=== PATIENT | male | born 1990 | race Two or more races ===

== ENCOUNTER 2016-12-06 15:47 | Emergency (ER) | payer SELFPAY ==
[~2016-12-06] VITALS: Ht 175.3 cm; Wt 64.9 kg
[~2016-12-06 15:47] MED LIST: INSU100C4 SQ; INSU100V13 SQ; PANT40TA5 PO; POLY17PO3 PO; SUCR1TAB35 PO
[2016-12-06] MEDS ORDERED: IV NORMAL SALINE 1000ML BAG 1,000 ML IV ONE ×2 (16:00→18:00)
[2016-12-06] MEDS ORDERED: LIDO:MAALOX:DONNATAL 1:1:1 15 ML SINGLE DOSE SWSW ONE (16:15)
[2016-12-06 16:34] LABS: BARBITURATES NEG (NEG); BENZODIAZEPINES NEG (NEG); CANNABINOIDS POS (NEG); COCAINE NEG (NEG); METHADONE NEG (NEG); OPIATES NEG (NEG); PHENCYCLIDINE NEG (NEG)
[2016-12-06 16:46] LABS: BASO # 0.1 x10^3/uL (0.0-0.2); BASO % 1 % (0-3); EOS % 0 % (0-3); LYMPH # 1.9 x10^3/uL (1.0-4.8); LYMPH % 18 % (24-48); MEAN CORPUSCULAR HEMOGLOBIN 31 pg (25-35); MEAN CORPUSCULAR HGB CONC 33 g/dL (31-37); MEAN CORPUSCULAR VOLUME 93 fL (79-100); MONO % 4 % (0-9); NEUT % 77 % (31-73); PLATELET COUNT 418 x10^3/uL (140-400); RED BLOOD COUNT 3.85 x10^6/uL (4.30-5.70); RED CELL DISTRIBUTION WIDTH 13.3 % (11.5-14.5); WHITE BLOOD COUNT 10.4 x10^3/uL (4.0-11.0)
--- NOTE | 2016-12-06 17:13 | EKG ---
[facility] [address] [place] [address] Test Date: 2016-12-06 Test Time: 16:28:45 Pat Name: KAYLAN LEE Department: Room: Gender: M Telephone Claims Representative: : 1990 Requested By: Haydee GILL Order Number: [id number] Reading MD: Measurements Intervals [place] Rate: 96 P: -104 GA: 122 QRS: 47 QRSD: 102 T: 64 QT: 352 QTc: 446 Interpretive Statements SUPRAVENTRICULAR RHYTHM QRS(T) CONTOUR ABNORMALITY CANNOT RULE OUT ANTEROSEPTAL MYOCARDIAL DAMAGE ST & T ABNORMALITY, CONSIDER RECENT INFERIOR MYOCARDIAL OR PERICARDIAL DAMAGE RI6.01 Unconfirmed report No previous ECG available for comparison
[2016-12-06] MEDS ORDERED: MORPHINE SULFATE 4 MG/ML DISP.SYRIN. IV ONE (17:15)
[2016-12-06] MEDS ORDERED: INSULIN REGULAR 100 UNIT/ML 10ML VIAL. IV ONE (17:15)
[2016-12-06 17:17] LABS: ALBUMIN 3.2 g/dL (3.4-5.0); CALCIUM 8.8 mg/dL (8.5-10.1); CREATININE 1.8 mg/dL (0.7-1.3); GFR 45.5; POTASSIUM 4.4 mmol/L (3.5-5.1); TOTAL BILIRUBIN 0.4 mg/dL (0.2-1.0); TOTAL PROTEIN 6.5 g/dL (6.4-8.2)
[2016-12-06] MEDS ORDERED: SUCRALFATE 1 GM/10 ML ORAL.SUSP. PEG ONE (17:30)
--- NOTE | 2016-12-06 17:39 | PHYS DOC ---
Past Medical History Past Medical History: Asthma, Diabetes-Type I, GERD Past Surgical History: No Surgical History Alcohol Use: None Drug Use: Marijuana Adult General Chief Complaint Chief Complaint: ABDOMINAL PAIN HPI HPI Patient is a 26 year old male who presents with complaints of high blood sugars as well as abdominal pain consistent with a history of reflux. Patient denies any fevers, chills rashes, diarrhea. No sick contacts. No trauma. Patient states he is compliant with his insulin but his blood sugar has been high for a couple days. He did himself gives himself insulin this morning. Patient denies any drug use other than marijuana, is only a social drinker, occasionally uses methamphetamines but the last time he used it was 2 weeks ago. Review of Systems Review of Systems Constitutional: no fevers, chills HENT: Denies nasal congestion or sore throat [] Respiratory: Denies cough or shortness of breath [] Cardiovascular: No chest pain GI: Yes to abdominal pain. No nausea, vomiting, bloody stools or diarrhea [] : Denies dysuria or hematuria [] Musculoskeletal: Denies back pain or joint pain [] Integument: Denies rash or skin lesions [] Neurologic: Denies headache, focal weakness or sensory changes [] Endocrine: Denies polyuria. Yes to polydipsia Current Medications Current Medications Current Medications Medications (Trade) Dose Ordered Sig/Cassandra Start Time Stop Time Status Last Admin Dose Admin Insulin Human Regular (NovoLIN R VIAL) 10 unit 1X ONCE 12/06/16 17:15 12/06/16 17:16 DC 12/06/16 17:18 10 UNIT Morphine Sulfate 4 mg 1X ONCE 12/06/16 17:15 12/06/16 17:16 DC 12/06/16 17:19 4 MG Multi-Ingredient Mouthwash/Gargle (Gi Cocktail Single Dose) 15 ml 1X ONCE 12/06/16 16:15 12/06/16 16:16 DC 12/06/16 16:47 15 ML Sodium Chloride 1,000 ml @ 1,000 mls/hr 1X ONCE 12/06/16 18:00 12/06/16 18:59 DC 12/06/16 18:06 1,000 MLS/HR Sucralfate (Carafate) 1 gm 1X ONCE 12/06/16 17:45 12/06/16 17:46 DC 12/06/16 17:40 1 GM Allergies Allergies Allergies Coded Allergies Type Severity Reaction Last Updated Verified Penicillins Allergy Unknown 12/06/16 Yes Physical Exam Physical Exam Constitutional: Well developed, well nourished, mild distress, non-toxic appearance. [] HENT: Normocephalic, atraumatic, bilateral external ears normal, oropharynx dry no oral exudates, Eyes: EOMI, conjunctiva normal, no discharge. [] Neck: Normal range of motion, no tenderness, supple, no stridor. No meningeal signs, no LAD Cardiovascular:Heart rate regular rhythm, no murmur [] Lungs & Thorax: Bilateral breath sounds clear to auscultation, no tachypnea Abdomen: Bowel sounds normal, soft, mild tenderness right upper quadrant, no masses, no pulsatile masses. [] Skin: Warm, dry, no erythema, no rash. Scattered lesions consistent with picking with no signs of cellulitis or abscess Back: No tenderness, no CVA tenderness. [] Extremities: No tenderness, no cyanosis, no clubbing, ROM intact, no edema. [] Neurologic: Alert and oriented X 3, normal motor function, no focal deficits noted. [] Psychologic: Affect normal, judgement normal, mood normal. [] Current Patient Data Vital Signs Vital Signs Date Time Temp Pulse Resp B/P (MAP) Pulse Ox O2 Delivery O2 Flow Rate FiO2 12/06/16 18:47 92 114/57 (76) 98 Room Air 12/06/16 15:57 98.4 22 98.4 Lab Values Laboratory Tests Test 12/06/16 16:06 12/06/16 16:18 12/06/16 16:37 Glucose (Fingerstick) 520 mg/dL (70-99) *H Urine Opiates Screen Neg (NEG) Urine Methadone Screen Neg (NEG) Urine Barbiturates Neg (NEG) Urine Phencyclidine Screen Neg (NEG) Urine Amphetamine/Methamphetamine Neg (NEG) Urine Benzodiazepines Screen Neg (NEG) Urine Cocaine Screen Neg (NEG) Urine Cannabinoids Screen Pos (NEG) Urine Ethyl Alcohol Neg (NEG) White Blood Count 10.4 x10^3/uL (4.0-11.0) Red Blood Count 3.85 x10^6/uL (4.30-5.70) L Hemoglobin 12.0 g/dL (13.0-17.5) L Hematocrit 36.0 % (39.0-53.0) L Mean Corpuscular Volume 93 fL (79-100) Mean Corpuscular Hemoglobin 31 pg (25-35) Mean Corpuscular Hemoglobin Concent 33 g/dL (31-37) Red Cell Distribution Width 13.3 % (11.5-14.5) Platelet Count 418 x10^3/uL (140-400) H Neutrophils (%) (Auto) 77 % (31-73) H Lymphocytes (%) (Auto) 18 % (24-48) L Monocytes (%) (Auto) 4 % (0-9) Eosinophils (%) (Auto) 0 % (0-3) Basophils (%) (Auto) 1 % (0-3) Neutrophils # (Auto) 8.0 x10^3uL (1.8-7.7) H Lymphocytes # (Auto) 1.9 x10^3/uL (1.0-4.8) Monocytes # (Auto) 0.5 x10^3/uL (0.0-1.1) Eosinophils # (Auto) 0.0 x10^3/uL (0.0-0.7) Basophils # (Auto) 0.1 x10^3/uL (0.0-0.2) Sodium Level 130 mmol/L (136-145) L Potassium Level 4.4 mmol/L (3.5-5.1) Chloride Level 88 mmol/L (98-107) L Carbon Dioxide Level 29 mmol/L (21-32) Anion Gap 13 (6-14) Blood Urea Nitrogen 40 mg/dL (8-26) H Creatinine 1.8 mg/dL (0.7-1.3) H Estimated GFR (Cockcroft-Gault) 45.5 BUN/Creatinine Ratio 22 (6-20) H Glucose Level 596 mg/dL (70-99) *H Calcium Level 8.8 mg/dL (8.5-10.1) Total Bilirubin 0.4 mg/dL (0.2-1.0) Aspartate Amino Transferase (AST) 15 U/L (15-37) Alanine Aminotransferase (ALT) 11 U/L (16-63) L Alkaline Phosphatase 152 U/L (46-116) H Total Protein 6.5 g/dL (6.4-8.2) Albumin 3.2 g/dL (3.4-5.0) L Albumin/Globulin Ratio 1.0 (1.0-1.7) Lipase 125 U/L (73-393) Laboratory Tests 12/06/16 16:37 Laboratory Tests 12/06/16 16:37 EKG EKG 1635 96, sinus rhythm, no STEMI [] Radiology/Procedures Radiology/Procedures [] Course & Med Decision Making Course & Med Decision Making Pertinent Labs and Imaging studies reviewed. (See chart for details), this has all been discussed with patient. 190 patient in no distress, patient feels improved. Glucose 330 [] Dragon Disclaimer Dragon Disclaimer This electronic medical record was generated, in whole or in part, using a voice recognition dictation system. Departure Departure Impression: Primary Impression: Abdominal pain Additional Impressions: Hyperglycemia Dehydration Marijuana abuse Disposition: HOME, SELF-CARE Condition: IMPROVED Referrals: NO PCP (PCP) you told us you have a pcp, please follow up with him/her to discuss possible need for adjustment of your insulin as well as recheck of your abdominal pain. Please follow up tomorrow. Please do not some marijuana any more. Patient Instructions: Abdominal Pain (Nonspecific), Dehydration, Adult, Hypercalcemia, Marijuana Abuse and Chemical Dependency Scripts Sucralfate (CARAFATE) 1 Gm/10 Ml Oral.susp 10 ML PO BID, #120 ML 1 Refill Prov: Haydee GILL MD 12/06/16 Hyoscyamine Sulfate (LEVSIN) 0.125 Mg Tablet 1 TAB PO TID, #15 TAB 1 Refill Prov: Haydee GILL MD 12/06/16 Ondansetron Hcl (ZOFRAN) 4 Mg Tablet 1 TAB PO Q6HRS, #12 TAB Prov: Haydee GILL MD 12/06/16 Problem Qualifiers Haydee GILL MD Dec 06, 2016 17:39
[2016-12-06] MEDS ORDERED: SUCRALFATE 1 GM TABLET. PO ONE (17:45)
[2016-12-06 18:47] VITALS: BP 114/57
--- NOTE | 2016-12-06 18:57 | RAD ---
EXAM: Abdomen sonogram limited. HISTORY: Pain. TECHNIQUE: Sonographic imaging of the abdomen was performed. COMPARISON: CT dated 11/24/2016. FINDINGS: The liver is upper normal in size. There is hepatic steatosis. No focal hepatic lesion is seen. The gallbladder is unremarkable. The common bile duct is normal in caliber. The inferior vena cava is patent. The aorta is normal in caliber. The pancreas is unremarkable. The right kidney measures 13.4 cm [id number]. There is a dilated right renal collecting system which nearly completely resolves with post void imaging. IMPRESSION: 1. Prominent right renal plaquing system which nearly completely resolves with post void imaging. This is likely due to the hydration status of the patient rather than hydronephrosis. There may be a superimposed component of reflux. 2. Hepatic steatosis and upper normal liver size. Electronically signed by: Dinorah Pool MD (12/06/2016 6:54 PM) [facility]
[2016-12-06] MEDS ORDERED: ONDA4TAB7 PO (19:17)
[2016-12-06] MEDS ORDERED: HYOS0.1264 PO (19:17)
[2016-12-06] MEDS ORDERED: SUCR1ORA5 PO (19:17)
== END 2016-12-06 19:33 | disposition home or self-care (01) ==
LOC: ER 15:47
DX: R10.11 Right upper quadrant pain (principal); E10.65 Type 1 diabetes mellitus with hyperglycemia; E86.0 Dehydration; F12.10 Cannabis abuse, uncomplicated; J45.909 Unspecified asthma, uncomplicated; K21.9 Gastro-esophageal reflux disease without esophagitis; F15.10 Other stimulant abuse, uncomplicated; Z79.4 Long term (current) use of insulin; Z88.0 Allergy status to penicillin
CPT/HCPCS: 36415; 76705; 80053; 80307; 82962; 83690; 85025; 93005; 96361; 96374; 96375; 99285; J1815; J2270; J7030; G0479

== ENCOUNTER 2017-01-13 02:01 | Inpatient (IN) | payer SELFPAY ==
[~2017-01-13] VITALS: Ht 172.7 cm; Wt 64.9 kg
[~2017-01-13 02:01] MED LIST changes: +HYOS0.1264 PO; +ONDA4TAB7 PO; +SUCR1ORA5 PO
[2017-01-13 02:43] LABS: BASO % 1 % (0-3); EOS % 0 % (0-3); HEMATOCRIT 43.5 % (39.0-53.0); HEMOGLOBIN 14.9 g/dL (13.0-17.5); LYMPH # 1.6 x10^3/uL (1.0-4.8); LYMPH % 25 % (24-48); MEAN CORPUSCULAR HEMOGLOBIN 32 pg (25-35); MEAN CORPUSCULAR HGB CONC 34 g/dL (31-37); MEAN CORPUSCULAR VOLUME 94 fL (79-100); MONO % 6 % (0-9); NEUT % 68 % (31-73); PLATELET COUNT 346 x10^3/uL (140-400); RED BLOOD COUNT 4.63 x10^6/uL (4.30-5.70); RED CELL DISTRIBUTION WIDTH 15.1 % (11.5-14.5); WHITE BLOOD COUNT 6.3 x10^3/uL (4.0-11.0)
[2017-01-13] MEDS ORDERED: IV NORMAL SALINE 1000ML BAG 1,000 ML IV ONE ×2 (02:45→03:45)
[2017-01-13] MEDS ORDERED: NALOXONE 0.4 MG/ML VIAL. IV ONE (02:45)
[2017-01-13] MEDS ORDERED: CONTRAST GIVEN MC PRN (02:45)
[2017-01-13] MEDS ORDERED: IOHEXOL 300 MG/ML 75 ML VIAL IV ONE (02:45)
[2017-01-13 02:55] LABS: PROTHROMBIN TIME PATIENT 12.5 SEC (11.7-14.0)
[2017-01-13 02:55] LABS: BILIRUBIN,URINE NEGATIVE (NEG); GLUCOSE,URINE >=1000 mg/dL (NEG); NITRITE,URINE NEGATIVE (NEG); PH,URINE 5.5; PROTEIN,URINE NEGATIVE (NEG-TRACE); UROBILINOGEN,URINE 0.2 mg/dL (0.2 mg/dL)
[2017-01-13 02:58] LABS: CALCIUM 10.1 mg/dL (8.5-10.1); CREATININE 1.6 mg/dL (0.7-1.3); GFR 52.1; POTASSIUM 4.2 mmol/L (3.5-5.1)
[2017-01-13 02:59] LABS: BACTERIA,URINE 0 /HPF (0-FEW); RBC,URINE 0 /HPF (0-2); SQUAMOUS EPITHELIAL CELL,UR OCC /LPF; WBC,URINE OCC /HPF (0-4)
[2017-01-13 03:01] LABS: ETHANOL < 10 mg/dL (0-10)
[2017-01-13 03:02] LABS: BARBITURATES NEG (NEG); BENZODIAZEPINES NEG (NEG); CANNABINOIDS POS (NEG); COCAINE NEG (NEG); METHADONE NEG (NEG); OPIATES NEG (NEG); PHENCYCLIDINE NEG (NEG)
[2017-01-13 03:02] LABS: ALBUMIN 4.1 g/dL (3.4-5.0); MAGNESIUM 2.4 mg/dL (1.8-2.4); TOTAL BILIRUBIN 0.7 mg/dL (0.2-1.0); TOTAL PROTEIN 8.3 g/dL (6.4-8.2)
--- NOTE | 2017-01-13 03:12 | RAD ---
CT head without contrast: Reason for examination: Altered mental status tonight. Axial images were obtained through the brain. No contrast was administered. Exposure: One or more of the following individualized dose reduction techniques were utilized for this examination: 1. Automated exposure control 2. Adjustment of the mA and/or kV according to patient size 3. Use of iterative reconstruction technique. Ventricular systems are symmetric and not abnormally dilated. No midline shift is seen. There is no evidence of intracranial hemorrhage, infarct, mass or contusion. No abnormalities are seen at the orbits. The paranasal sinuses and mastoid air cells are clear. No acute abnormality seen in the skull. IMPRESSION: No acute intracranial abnormality evident. Electronically signed by: April Arias MD (01/13/2017 3:09 AM) [facility]
[2017-01-13] MEDS ORDERED: ONDANSETRON PF 4 MG/2 ML VIAL. IV PRN (03:45)
[2017-01-13] MEDS ORDERED: ACETAMINOPHEN 325 MG TABLET. PO PRN (03:45)
--- NOTE | 2017-01-13 04:18 | PHYS DOC ---
Past Medical History Past Medical History: Asthma, Diabetes-Type I, GERD Past Surgical History: No Surgical History Alcohol Use: Occasionally Drug Use: Marijuana, Methamphetamine Adult General Chief Complaint Chief Complaint: ALTERED MENTAL STATUS HPI HPI Patient is a 26 year old male who presents with altered mental status. The patient is unable to give history due to his clinical condition. A friend states that she picked him up from another house, & was concerned that his blood glucose was low. She states he complained of abdominal pain, appeared sweaty, & was confused. He has history of type 1 diabetes. The patient denies drug or alcohol use. Was recently hospitalized at [facility] for unknown condition. Review of Systems Review of Systems unable to obtain due to clinical condition. Current Medications Current Medications Current Medications Medications (Trade) Dose Ordered Sig/Cassandra Start Time Stop Time Status Last Admin Dose Admin Acetaminophen (Tylenol) 650 mg PRN Q4HRS PRN 01/13/17 03:45 01/14/17 03:44 Info (Do NOT chart on this entry -- for MONITORING) 1 each PRN DAILY PRN 01/13/17 02:45 01/15/17 02:44 Iohexol (Omnipaque 300 Mg/ml) 75 ml 1X ONCE 01/13/17 02:45 01/13/17 02:46 DC 01/13/17 02:45 60 ML Naloxone HCl (Narcan) 0.4 mg 1X ONCE 01/13/17 02:45 01/13/17 02:46 DC Ondansetron HCl (Zofran) 4 mg PRN Q8HRS PRN 01/13/17 03:45 01/14/17 03:44 Sodium Chloride 1,000 ml @ 1,000 mls/hr 1X ONCE 01/13/17 03:45 01/13/17 04:44 01/13/17 03:56 1,000 MLS/HR Allergies Allergies Allergies Coded Allergies Type Severity Reaction Last Updated Verified Penicillins Allergy Unknown 12/06/16 Yes Physical Exam Physical Exam Constitutional: drowsy, poor hygiene, no acute distress, non-toxic appearance. HENT: Normocephalic, atraumatic, bilateral external ears normal, oropharynx moist, nose normal. Eyes: PERRLA, EOMI, conjunctiva normal, no discharge. Neck: supple, no stridor. Cardiovascular: tachycardic, regular, no murmurs, no edema. Lungs & Thorax: LCTAB, no wheezing, no respiratory distress. Abdomen: soft, nondistended, LLQ & L mid abdominal tenderness with voluntary guarding, no rebound tenderness, no masses or pulsatile masses. Skin: Warm, dry, no erythema, no rash. Back: No tenderness. Extremities: No tenderness, no edema. Neurologic: drowsy, arousable to painful stimulus, answers some questions, follows commands, GCS 11, CN2-12 grossly intact though poorly cooperative, symmetric strength/sensation to upper & lower extremities though globally weak, no focal deficits noted. Psychologic: unable to assess due to clinical condition. Current Patient Data Vital Signs Vital Signs Date Time Temp Pulse Resp B/P (MAP) Pulse Ox O2 Delivery O2 Flow Rate FiO2 01/13/17 02:34 97.8 104 20 98 97.8 01/13/17 02:04 118/73 (88) Room Air Lab Values Laboratory Tests Test 01/13/17 02:08 01/13/17 02:34 01/13/17 02:48 Glucose (Fingerstick) 207 mg/dL (70-99) H White Blood Count 6.3 x10^3/uL (4.0-11.0) Red Blood Count 4.63 x10^6/uL (4.30-5.70) Hemoglobin 14.9 g/dL (13.0-17.5) Hematocrit 43.5 % (39.0-53.0) Mean Corpuscular Volume 94 fL (79-100) Mean Corpuscular Hemoglobin 32 pg (25-35) Mean Corpuscular Hemoglobin Concent 34 g/dL (31-37) Red Cell Distribution Width 15.1 % (11.5-14.5) H Platelet Count 346 x10^3/uL (140-400) Neutrophils (%) (Auto) 68 % (31-73) Lymphocytes (%) (Auto) 25 % (24-48) Monocytes (%) (Auto) 6 % (0-9) Eosinophils (%) (Auto) 0 % (0-3) Basophils (%) (Auto) 1 % (0-3) Neutrophils # (Auto) 4.3 x10^3uL (1.8-7.7) Lymphocytes # (Auto) 1.6 x10^3/uL (1.0-4.8) Monocytes # (Auto) 0.4 x10^3/uL (0.0-1.1) Eosinophils # (Auto) 0.0 x10^3/uL (0.0-0.7) Basophils # (Auto) 0.0 x10^3/uL (0.0-0.2) Prothrombin Time 12.5 SEC (11.7-14.0) Prothrombin Time INR 1.0 (0.8-1.1) PTT 26 SEC (24-38) Sodium Level 136 mmol/L (136-145) Potassium Level 4.2 mmol/L (3.5-5.1) Chloride Level 90 mmol/L (98-107) L Carbon Dioxide Level 25 mmol/L (21-32) Anion Gap 21 (6-14) H Blood Urea Nitrogen 29 mg/dL (8-26) H Creatinine 1.6 mg/dL (0.7-1.3) H Estimated GFR (Cockcroft-Gault) 52.1 BUN/Creatinine Ratio 18 (6-20) Glucose Level 235 mg/dL (70-99) H Calcium Level 10.1 mg/dL (8.5-10.1) Magnesium Level 2.4 mg/dL (1.8-2.4) Total Bilirubin 0.7 mg/dL (0.2-1.0) Aspartate Amino Transferase (AST) 28 U/L (15-37) Alanine Aminotransferase (ALT) 14 U/L (16-63) L Alkaline Phosphatase 234 U/L (46-116) H Troponin I Quantitative < 0.017 ng/mL (0.000-0.055) KX-Uwn-P-Type Natriuretic Peptide 26 pg/mL (0-124) Total Protein 8.3 g/dL (6.4-8.2) H Albumin 4.1 g/dL (3.4-5.0) Albumin/Globulin Ratio 1.0 (1.0-1.7) Lipase 114 U/L (73-393) Salicylates Level 3.5 mg/dL (2.8-20.0) Salicylate Last Dose Date Salicylate Last Dose Time Acetaminophen Level < 2 mcg/ml (10-30) L Acetaminophen Last Dose Date Acetaminophen Last Dose Time Ethyl Alcohol Level < 10 mg/dL (0-10) Urine Collection Type Unknown Urine Color Yellow Urine Clarity Clear Urine pH 5.5 Urine Specific [place] >=1.030 Urine Protein Negative mg/dL (NEG-TRACE) Urine Glucose (UA) >=1000 mg/dL (NEG) Urine Ketones (Stick) >=80 mg/dL (NEG) Urine Blood Negative (NEG) Urine Nitrite Negative (NEG) Urine Bilirubin Negative (NEG) Urine Urobilinogen Dipstick 0.2 mg/dL (0.2 mg/dL) Urine Leukocyte Esterase Negative (NEG) Urine RBC 0 /HPF (0-2) Urine WBC Occ /HPF (0-4) Urine Squamous Epithelial Cells Occ /LPF Urine Bacteria 0 /HPF (0-FEW) Urine Opiates Screen Neg (NEG) Urine Methadone Screen Neg (NEG) Urine Barbiturates Neg (NEG) Urine Phencyclidine Screen Neg (NEG) Urine Amphetamine/Methamphetamine Pos (NEG) Urine Benzodiazepines Screen Neg (NEG) Urine Cocaine Screen Neg (NEG) Urine Cannabinoids Screen Pos (NEG) Urine Ethyl Alcohol Neg (NEG) Laboratory Tests 01/13/17 02:34 Laboratory Tests 01/13/17 02:34 EKG EKG interpreted by me: sinus tachycardia rate 103, no acute ST/T wave changes, normal intervals, no ectopy.[] Radiology/Procedures Radiology/Procedures CXR: interpreted by me: no cardiomegaly, no infiltrate, no pneumothorax, no acute process. PROCEDURE: CT HEAD WO CONTRAST CT head without contrast: Reason for examination: Altered mental status tonight. Axial images were obtained through the brain. No contrast was administered. Exposure: One or more of the following individualized dose reduction techniques were utilized for this examination: 1. Automated exposure control 2. Adjustment of the mA and/or kV according to patient size 3. Use of iterative reconstruction technique. Ventricular systems are symmetric and not abnormally dilated. No midline shift is seen. There is no evidence of intracranial hemorrhage, infarct, mass or contusion. No abnormalities are seen at the orbits. The paranasal sinuses and mastoid air cells are clear. No acute abnormality seen in the skull. IMPRESSION: No acute intracranial abnormality evident. Electronically signed by: April Martinez MD (01/13/2017 3:09 AM) [facility] DICTATED and SIGNED BY: APRIL MARTINEZ MD DATE: 01/13/17 0308 [] Course & Med Decision Making Course & Med Decision Making Pertinent Labs and Imaging studies reviewed. (See chart for details) The patient presents with altered mental status. blood glucose was in the 200s. Arousable with painful stimulus, oxygen saturation stable. Gave IV fluids. Obtained labs, EKG, CXR, head CT, CT abdomen/pelvis. Found to have high anion gap without acidosis, hyperglycemia, positive for amphetamines & cannabis. Recommended admission to the hospital for further evaluation & treatment as his GCS had not changed. Discussed with Dr. Voss who agrees to admit to inpatient status. The patient is admitted in stable condition. [] Dragon Disclaimer Dragon Disclaimer This electronic medical record was generated, in whole or in part, using a voice recognition dictation system. Departure Departure Impression: Primary Impression: Altered mental status Additional Impressions: Abdominal pain Hyperglycemia Polysubstance abuse Disposition: ADMITTED INPATIENT Condition: STABLE Referrals: NO PCP (PCP) Problem Qualifiers SHANE RUBIO MD Jan 13, 2017 04:18
[2017-01-13] MEDS ORDERED: DEXTROSE 50% 25 GM / 50ML DISP.SYRIN. IV PRN ×2 (04:30→14:15)
--- NOTE | 2017-01-13 04:59 | RAD ---
CT abdomen pelvis with contrast: Reason for examination: Diffuse low abdominal pain. Helical images were obtained through the abdomen and pelvis with intravenous administration of 60 cc Omnipaque 300. Reconstruction was performed in sagittal and coronal planes. Exposure: One or more of the following individualized dose reduction techniques were utilized for this examination: 1. Automated exposure control 2. Adjustment of the mA and/or kV according to patient size 3. Use of iterative reconstruction technique. The lung bases are clear. The heart size is normal with no pericardial effusion evident. No abnormality seen at the liver, spleen, adrenal glands, gallbladder or pancreas. The abdominal aorta and inferior vena cava show no acute abnormalities. No abnormality seen at the appendix. The intestinal tract shows no abnormally dilated loops of bowel or evidence of bowel obstruction. There is a large amount of fecal material in the rectum. Small intestinal tract does not appear distended. No bowel obstruction is seen. The kidneys show no renal masses or renal calculi. There is suggestion of some mild hydronephrosis but no evidence of obstructive uropathy. The bladder is markedly distended measuring 18.5 cm in greatest cranial caudal dimension, 14.6 cm in greatest transverse first dimension and measuring 8.5 cm in greatest AP dimension. No abnormality seen at the prostate gland or seminal vesicles. No free fluid is seen in the abdomen or pelvis. No acute bony abnormalities are seen. IMPRESSION: Marked distention of the bladder with mild hydronephrosis. No other focal abnormality seen in the abdomen or pelvis. Electronically signed by: April Arias MD (01/13/2017 4:55 AM) [facility]
[2017-01-13] MEDS: IV NORMAL SALINE 1000ML BAG 1,000 ML IV SCH ×2 (06:05→15:47)
[2017-01-13 06:31] VITALS: BP 153/102
[2017-01-13 07:00] VITALS: BP 116/67
--- NOTE | 2017-01-13 07:18 | RAD ---
Portable chest, 01/13/2017: History: Altered mental status Comparison is made to a study from 12/14/2012. The heart size and pulmonary vascularity are normal. The lungs are clear. There is no evidence of pleural fluid. IMPRESSION: No acute cardiopulmonary abnormality is detected.
[2017-01-13 10:38] VITALS: BP 113/65
--- NOTE | 2017-01-13 11:50 | EKG ---
[facility] [address] [place] [address] Test Date: 2017-01-13 Test Time: 02:15:49 Pat Name: KAYLAN LEE Department: Room: [facility] Gender: M Cps Team Lead: : 1990 Requested By: SHANE RUBIO Order Number: [id number] Reading MD: Ronak Rae Measurements Intervals [place] Rate: 103 P: 13 MN: 150 QRS: 76 QRSD: 100 T: 58 QT: 320 QTc: 421 Interpretive Statements SINUS TACHYCARDIA NONSPECIFIC ST-T WAVE CHANGES. POSSIBLY ABNORMAL ECG RI6.01 Compared to ECG 12/06/2016 16:28:45 Ectopic atrial rhythm no longer present Electronically Signed On 02-01-2017 17:04:14 CDT by Ronak Rae
[2017-01-13 15:00] VITALS: BP 119/71
[2017-01-13] MEDS ORDERED: INSULIN ASPART 300 UNITS/3 ML INSULN.PEN SQ SCH (17:00)
--- NOTE | 2017-01-13 19:14 | SSS ---
ADMIT DATE: 01/13/2017 CHIEF COMPLAINT: Loss of consciousness. HISTORY OF PRESENT ILLNESS: The patient is a 26-year-old well known to our service with past medical history of diabetes mellitus, noncompliant with his medications, who was brought in by brother/friends last night after he had been picked up from a house and was essentially unresponsive. He complained of abdominal pain, appeared sweaty and was confused. Denied any drug or alcohol use in the Emergency Room. Drug screen, however, was positive for methamphetamines as well as cannabinoids. Alcohol was actually negative. The patient was therefore admitted for further observation. Blood sugars initially actually were 207 and remained fairly high during his hospitalization. PAST MEDICAL HISTORY: Diabetes mellitus, noncompliant with insulin regimen and chronic abdominal pain. FAMILY HISTORY: Unknown. SOCIAL HISTORY: Not working, multi-substance abuse. ALLERGIES: PENICILLIN. MEDICATIONS: In theory, insulin, long and short acting. REVIEW OF SYSTEMS: The patient in the afternoon is actually quite coherent, in the morning had difficulty waking. BM interview revealed abdominal pain in the left lower quadrant. He has had a normal bowel movement this morning and declines any stool softeners or laxatives. Rest of organ system review is negative. PHYSICAL EXAMINATION: VITAL SIGNS: From today show a blood pressure of 119/71, heart rate of 74, respiratory rate at 20. He is afebrile. GENERAL: This is a malnourished 26-year-old alert and oriented, in no acute distress. LUNGS: Clear. HEART: Has regular rate and rhythm. ABDOMEN: Has positive bowel sounds, mild tenderness to palpation in the left lower quadrant, no masses apparent, no hernia. EXTREMITIES: Show no edema. SKIN: Warm, soft and dry. LABORATORY DATA: CBC with a WBC of 6.3, hemoglobin 14.9, platelets of 346. Chemistries with a BUN and creatinine of 29 and 1.6. This is actually improved compared to previous hospitalization end of November. Electrolytes within normal. IMAGING: CT of the abdomen and pelvis shows marked distention of the bladder with mild hydronephrosis, no focal abnormality seen in the abdomen or pelvis. ASSESSMENT AND PLAN: The patient is a 26-year-old gentleman who presented with altered mental status, most likely secondary to drug intoxication. He did have some urinary retention, which probably is related to drugs as well. He has been able to urinate since. Still has left lower quadrant pain. This, however, has been chronic and has been noted on multiple previous admissions. No correlate seen on CT. With proper rehydration and IV, the patient is now coherent and ready for discharge. DISCHARGE DIAGNOSIS: Drug intoxication. DISCHARGE DISPOSITION: To home. DISCHARGE CONDITION: Improved. DISCHARGE MEDICATIONS: Please refer to MAR. DISCHARGE INSTRUCTIONS: The patient should abstain from illicit drugs and follow up with his PCP and insulin regimen. LORRAINE BLAIR MD DR: UR/nts JOB#: [id number] / [id number] JUSTIN
== END 2017-01-13 19:15 | disposition home or self-care (01) | DRG 896 ==
LOC: ER 02:01 → 5 NORTH 03:36
PROVIDERS: ADMIT Internal Medicine Hematology & Oncology; ATTEND Internal Medicine Hematology & Oncology
DX: F15.129 Other stimulant abuse with intoxication, unspecified (principal); G92 Toxic encephalopathy; F12.129 Cannabis abuse with intoxication, unspecified; E10.65 Type 1 diabetes mellitus with hyperglycemia; J45.909 Unspecified asthma, uncomplicated; K21.9 Gastro-esophageal reflux disease without esophagitis; R33.9 Retention of urine, unspecified; G89.29 Other chronic pain; R10.32 Left lower quadrant pain; Z79.4 Long term (current) use of insulin; Z91.14 Patient's other noncompliance with medication regimen; Y92.89 Other specified places as the place of occurrence of the external cause
CPT/HCPCS: 36415; 70450; 71010; 74177; 80053; 80307; 80329; 81001; 82962; 83690; 83735; 83880; 84484; 85025; 85610; 85730; 93005; 96360; 96361; G0480; J1815; J7030; Q9967; 99285-25; G0479